=== PATIENT | male | born 1980 | race Two or more races ===

== ENCOUNTER 2018-01-10 09:19 | Outpatient (CLI) | payer OTHER | END 2018-01-10 09:26 | disposition home or self-care (01) | LOC: RAD 501 09:19 | DX: S92.352A Displaced fracture of fifth metatarsal bone, left foot, initial encounter for closed fracture (principal) ==

== ENCOUNTER 2018-01-29 08:03 | Outpatient (CLI) | payer OTHER | END 2018-01-29 08:10 | disposition home or self-care (01) | LOC: RAD 501 08:03 | DX: S92.302A Fracture of unspecified metatarsal bone(s), left foot, initial encounter for closed fracture (principal) ==